=== PATIENT | female | born 1970 | race African-American/Black ===

== ENCOUNTER 2017-02-17 22:23 | Emergency (ER) | payer MEDICARE, MEDICAID ==
[~2017-02-17] VITALS: Ht 180.3 cm; Wt 49.4 kg
[~2017-02-17 22:23] MED LIST: ASPI81TA27 PO; CINA30TA2 PO; CLON0.1T PO; CLON0.3D4 PO; DIPH25TA26 PO; LORA2TAB10 PO; METO-158 PO; NIFE90TA30 PO; OMEP20CA74 OR; PRO125RS RE; [UNRECOGNIZED DRUG - CODE] PO
[2017-02-17 22:57] LABS: Basophils # (auto) 0 uL; Basophils % (auto) 0.7 % (0.0-2.0); Eosinophils # (auto) 0.1 uL; Eosinophils % (auto) 2.1 % (0.0-7.0); Hematocrit 35.3 % (36.0-46.0); Hemoglobin 11.6 g/dL (12.2-16.2); Lymphocytes # (auto) 1.6 uL; Lymphocytes % (auto) 29.6 % (10.0-50.0); Mean Corpuscular Hemoglobin 32.9 pg (28.0-32.0); Mean Corpuscular Volume 99.7 fL (80.0-100.0); Monocytes # (auto) 0.4 uL; Monocytes % (auto) 8.3 % (0.0-12.0); Neutrophils # (auto) 3.2 uL; Neutrophils % (auto) 59.3 % (37.0-80.0); Nucleated Red Blood Cells % 0.2 %; Platelet Count (auto) 134 10^3/uL (140-450); Red Cell Distribution Width 16.3 % (11.8-14.3); White Blood Cell 5.4 10^3/uL (4.4-10.8)
[2017-02-17 23:14] LABS: Albumin 3.8 g/dL (3.4-5.0); Anion Gap 10 (5-15); Aspartate Aminotransferase 8 U/L (15-37); BUN/Creatinine Ratio 4.2; Blood Urea Nitrogen 40 mg/dL (7-18); Calcium 9.5 mg/dL (8.5-10.1); Carbon Dioxide 29 mmol/L (21-32); Chloride 98 mmol/L (98-107); GFR African American 6 mL/min; GFR Non-African American 5 mL/min; Glucose 65 mg/dL (74-106); Magnesium 2.8 mg/dL (1.6-2.6); Potassium 4.7 mmol/L (3.5-5.1); Sodium 137 mmol/L (136-145)
[2017-02-17 23:19] LABS: Alkaline Phosphatase 49 U/L (45-117); Bilirubin, Total 0.4 mg/dL (0.2-1.0); Total Protein 7.5 g/dL (6.4-8.2)
[2017-02-18] MEDS ORDERED: HYDROcodone-ACET 10/325MG TAB PO ONE
[2017-02-18 00:02] LABS: Temperature: 21.8 C (20.0-25.0)
[2017-02-18 02:12] VITALS: BP 196/95
== END 2017-02-18 02:16 | disposition home or self-care (01) ==
LOC: EDBD 22:23 → ER 22:26
DX: R07.89 Other chest pain (principal); I25.10 Atherosclerotic heart disease of native coronary artery without angina pectoris; I12.0 Hypertensive chronic kidney disease with stage 5 chronic kidney disease or end stage renal disease; N18.6 End stage renal disease; I25.2 Old myocardial infarction; F17.210 Nicotine dependence, cigarettes, uncomplicated; Z79.82 Long term (current) use of aspirin; Z79.899 Other long term (current) drug therapy; Z99.2 Dependence on renal dialysis
CPT/HCPCS: 36415; 71010; 80053; 83735; 83880; 84484; 85025; 93005

== ENCOUNTER 2017-06-21 13:25 | Inpatient (IN) | payer MEDICARE, MEDICAID ==
[~2017-06-21] VITALS: Ht 177.8 cm; Wt 76.6 kg
[~2017-06-21 13:25] MED LIST changes: +CLO01T PO; +MET50T PO; -METO-158 PO; -OMEP20CA74 OR; +OMEP20CA74 PO
[2017-06-21] MEDS ORDERED: cloNIDine HCL 0.1 MG TAB PO ONE (15:00)
[2017-06-21] MEDS ORDERED: cefTRIAXone 1GM/10ml IVPUSH 10 ML IV ONE (15:45)
[2017-06-21 16:22] LABS: Basophils # (auto) 0.1 uL; Eosinophils # (auto) 0.2 uL; Hemoglobin 13.8 g/dL (12.2-16.2); Neutrophils # (auto) 5.3 uL
[2017-06-21 16:24] LABS: Basophils % (auto) 1.2 % (0.0-2.0); Eosinophils % (auto) 2.6 % (0.0-7.0); Hematocrit 41.1 % (36.0-46.0); Lymphocytes # (auto) 1.3 uL; Lymphocytes % (auto) 16.9 % (10.0-50.0); Mean Corpuscular Hemoglobin 34.3 pg (28.0-32.0); Mean Corpuscular Hgb Conc. 33.6 g/dL (32.0-36.0); Mean Corpuscular Volume 102.1 fL (80.0-100.0); Monocytes # (auto) 0.6 uL; Monocytes % (auto) 8.7 % (0.0-12.0); Neutrophils % (auto) 70.6 % (37.0-80.0); Nucleated Red Blood Cells % 0.1 %; Platelet Count (auto) 208 10^3/uL (140-450); Red Blood Cells 4.03 10^6/uL (4.0-5.20); Red Cell Distribution Width 16.4 % (11.8-14.3); White Blood Cell 7.5 10^3/uL (4.4-10.8)
[2017-06-21 16:35] LABS: INR 0.94 (0.9-1.15); Partial Thromboplastin Time 23.5 sec (22.64-33.71); Prothrombin Time 10.2 sec (9.37-12.3)
[2017-06-21] MEDS ORDERED: MORPHINE SULFATE 10 MG/ML INJ 1ML SDV IV ONE (16:45)
[2017-06-21] MEDS ORDERED: ONDANSETRON HCL 4 MG/2 ML VIAL IV ONE (16:45)
[2017-06-21 16:54] LABS: Albumin 4.8 g/dL (3.4-5.0); BUN/Creatinine Ratio 2.8; Bilirubin, Total 0.5 mg/dL (0.2-1.0); Calcium 11.5 mg/dL (8.5-10.1); Potassium 4.9 mmol/L (3.5-5.1); Total Protein 8.9 g/dL (6.4-8.2)
[2017-06-21] MEDS ORDERED: ACETAMINOPHEN 500 MG TAB PO PRN (20:30)
[2017-06-21] MEDS ORDERED: LORazepam 0.5 MG TAB PO PRN (20:30)
[2017-06-21 21:14] LABS: Basophils # (auto) 0.1 uL; Eosinophils # (auto) 0.1 uL; Monocytes # (auto) 0.5 uL; Nucleated Red Blood Cells % 0.1 %
[2017-06-21 21:15] LABS: Basophils % (auto) 1.1 % (0.0-2.0); Eosinophils % (auto) 1.3 % (0.0-7.0); Hematocrit 40.1 % (36.0-46.0); Hemoglobin 13.1 g/dL (12.2-16.2); Mean Corpuscular Hemoglobin 33.7 pg (28.0-32.0); Mean Corpuscular Hgb Conc. 32.8 g/dL (32.0-36.0); Mean Corpuscular Volume 102.9 fL (80.0-100.0); Monocytes % (auto) 6.7 % (0.0-12.0); Neutrophils # (auto) 5.3 uL; Neutrophils % (auto) 76.9 % (37.0-80.0); Platelet Count (auto) 201 10^3/uL (140-450); Red Blood Cells 3.89 10^6/uL (4.0-5.20); Red Cell Distribution Width 16.9 % (11.8-14.3); White Blood Cell 6.9 10^3/uL (4.4-10.8)
[2017-06-21] MEDS ORDERED: NIFEdipine ER 30 MG TAB PO ONE (21:30)
[2017-06-21] MEDS ORDERED: LABETALOL HCL 5 MG/ML ML 20ML VIAL IV PRN (21:30)
[2017-06-21 21:37] LABS: Albumin 4.9 g/dL (3.4-5.0); BUN/Creatinine Ratio 2.9; Bilirubin, Total 0.4 mg/dL (0.2-1.0); Calcium 11.6 mg/dL (8.5-10.1); Potassium 4.2 mmol/L (3.5-5.1); Total Protein 8.7 g/dL (6.4-8.2)
[2017-06-21] MEDS: traZODone HCL 50 MG TAB PO SCH (21:49)
[2017-06-21] MEDS: MORPHINE SULFATE 10 MG/ML INJ 1ML SDV IV PRN (22:00)
[2017-06-21] MEDS ORDERED: cloNIDine HCL 0.1 MG TAB PO SCH (22:00)
[2017-06-21] MEDS: cloNIDine HCL 0.1 MG TAB PO SCH (22:00)
[2017-06-21] MEDS: METOPROLOL TARTRATE 50 MG TAB PO SCH (22:00)
[2017-06-21] MEDS: ONDANSETRON HCL 4 MG/2 ML VIAL IV PRN (22:01)
[2017-06-22] MEDS: HYDROcodone-ACET 5/325MG TAB PO PRN ×2 (01:04→13:42)
[2017-06-22 05:00] VITALS: BP 146/80
[2017-06-22] MEDS: cloNIDine HCL 0.1 MG TAB PO SCH ×3 (05:21→21:51)
[2017-06-22] MEDS: SEVELAMER 800 MG TAB PO SCH ×3 (08:09→17:39)
[2017-06-22 09:00] VITALS: BP 137/76
[2017-06-22] MEDS ORDERED: PIPERACILLIN-TAZOB 3.375GM 50 ML IV ONE (09:30)
[2017-06-22] MEDS ORDERED: metroNIDAZOLE 500MG/100ML 100 ML IV ONE (09:30)
[2017-06-22] MEDS: PANTOPRAZOLE 40 MG TAB PO SCH (09:56)
[2017-06-22] MEDS: NIFEdipine ER 30 MG TAB PO SCH (09:57)
[2017-06-22] MEDS: METOPROLOL TARTRATE 50 MG TAB PO SCH ×2 (09:57→21:51)
[2017-06-22] MEDS: ASPirin-EC 81 mg tab PO SCH (09:58)
[2017-06-22] MEDS: PIPERACILLIN-TAZOB 3.375GM 50 ML IV SCH ×3 (11:34→22:50)
[2017-06-22 13:00] VITALS: BP 140/77
[2017-06-22] MEDS: metroNIDAZOLE 500MG/100ML 100 ML IV SCH ×2 (14:39→20:54)
[2017-06-22 17:20] VITALS: BP 122/65
[2017-06-22] MEDS: MORPHINE SULFATE 10 MG/ML INJ 1ML SDV IV PRN (20:53)
[2017-06-22] MEDS: ONDANSETRON HCL 4 MG/2 ML VIAL IV PRN (20:53)
[2017-06-22] MEDS: traZODone HCL 50 MG TAB PO SCH (21:51)
[2017-06-22 22:00] VITALS: BP 123/75
[2017-06-23] MEDS: MORPHINE SULFATE 10 MG/ML INJ 1ML SDV IV PRN ×3 (02:43→22:46)
[2017-06-23] MEDS: metroNIDAZOLE 500MG/100ML 100 ML IV SCH ×4 (03:16→20:56)
[2017-06-23] MEDS: PIPERACILLIN-TAZOB 3.375GM 50 ML IV SCH ×4 (04:29→22:37)
[2017-06-23 05:00] VITALS: BP 133/72
[2017-06-23] MEDS: cloNIDine HCL 0.1 MG TAB PO SCH ×3 (06:08→21:26)
[2017-06-23 08:00] VITALS: BP 135/70
[2017-06-23] MEDS: SEVELAMER 800 MG TAB PO SCH ×3 (08:26→18:52)
[2017-06-23 09:00] VITALS: BP 135/70
[2017-06-23] MEDS: ASPirin-EC 81 mg tab PO SCH (10:46)
[2017-06-23] MEDS: METOPROLOL TARTRATE 50 MG TAB PO SCH ×2 (10:46→21:26)
[2017-06-23] MEDS: PANTOPRAZOLE 40 MG TAB PO SCH (10:46)
[2017-06-23] MEDS: NIFEdipine ER 30 MG TAB PO SCH (10:47)
[2017-06-23] MEDS: HYDROcodone-ACET 5/325MG TAB PO PRN (10:58)
[2017-06-23 13:00] VITALS: BP 135/74
[2017-06-23] MEDS ORDERED: diphenhdrAMINE HCL 50 MG/1 ML VL IV ONE (14:00)
[2017-06-23 17:00] VITALS: BP 108/56
[2017-06-23] MEDS: traZODone HCL 50 MG TAB PO SCH (21:26)
[2017-06-23] MEDS: diphenhdrAMINE HCL 50 MG/1 ML VL IV PRN (21:27)
[2017-06-23 22:00] VITALS: BP 120/70
[2017-06-24] MEDS: metroNIDAZOLE 500MG/100ML 100 ML IV SCH ×2 (02:48→10:03)
[2017-06-24] MEDS: PIPERACILLIN-TAZOB 3.375GM 50 ML IV SCH ×2 (04:48→11:56)
[2017-06-24 05:00] VITALS: BP 143/70
[2017-06-24] MEDS: cloNIDine HCL 0.1 MG TAB PO SCH ×3 (05:18→21:52)
[2017-06-24] MEDS: HYDROcodone-ACET 5/325MG TAB PO PRN (05:19)
[2017-06-24 08:00] VITALS: BP 124/72
[2017-06-24 08:42] VITALS: BP 124/72
[2017-06-24] MEDS: METOPROLOL TARTRATE 50 MG TAB PO SCH ×2 (10:00→21:52)
[2017-06-24] MEDS: SEVELAMER 800 MG TAB PO SCH ×3 (10:01→17:19)
[2017-06-24 10:02] LABS: BUN/Creatinine Ratio 2.2; Calcium 9.9 mg/dL (8.5-10.1); Potassium 5.4 mmol/L (3.5-5.1)
[2017-06-24] MEDS: PANTOPRAZOLE 40 MG TAB PO SCH (10:02)
[2017-06-24] MEDS: ASPirin-EC 81 mg tab PO SCH (10:02)
[2017-06-24] MEDS: NIFEdipine ER 30 MG TAB PO SCH (10:02)
[2017-06-24] MEDS: diphenhdrAMINE HCL 50 MG/1 ML VL IV PRN ×2 (10:55→17:18)
[2017-06-24 11:05] LABS: Basophils # (auto) 0 uL; Lymphocytes # (auto) 0.4 uL; Monocytes # (auto) 0.4 uL; Monocytes % (auto) 9.3 % (0.0-12.0); Neutrophils # (auto) 2.9 uL; Red Blood Cells 3.33 10^6/uL (4.0-5.20); White Blood Cell 3.8 10^3/uL (4.4-10.8)
[2017-06-24 11:13] LABS: Basophils % (auto) 0.3 % (0.0-2.0); Eosinophils # (auto) 0.2 uL; Eosinophils % (auto) 4.2 % (0.0-7.0); Hematocrit 34.5 % (36.0-46.0); Hemoglobin 11.3 g/dL (12.2-16.2); Lymphocytes % (auto) 10.5 % (10.0-50.0); Mean Corpuscular Hemoglobin 33.9 pg (28.0-32.0); Mean Corpuscular Hgb Conc. 32.7 g/dL (32.0-36.0); Mean Corpuscular Volume 103.7 fL (80.0-100.0); Neutrophils % (auto) 75.7 % (37.0-80.0); Red Cell Distribution Width 16.5 % (11.8-14.3)
[2017-06-24 11:27] LABS: Platelet Count (auto) 132 10^3/uL (140-450)
[2017-06-24 12:48] VITALS: BP 145/82
[2017-06-24] MEDS ORDERED: LEVOFLOXACIN 500MG 100 ML IV ONE (13:30)
[2017-06-24 16:44] VITALS: BP 146/92
[2017-06-24] MEDS: cefTRIAXone 1GM/10ml IVPUSH 10 ML IV SCH (17:19)
[2017-06-24] MEDS ORDERED: LACTULOSE 20Gm/30ML SOLN PO PRN (18:00)
[2017-06-24] MEDS ORDERED: LACTULOSE 20Gm/30ML SOLN PO SCH (18:00)
[2017-06-24] MEDS: MORPHINE SULFATE 10 MG/ML INJ 1ML SDV IV PRN (19:35)
[2017-06-24] MEDS ORDERED: SODIUM CHL 0.9% 1000 ML BAG XX ONE (19:45)
[2017-06-24] MEDS ORDERED: EPOETIN ALFA 10,000 UNIT/1 ML VIAL IV ONE (19:45)
[2017-06-24 21:38] VITALS: BP 130/90
[2017-06-24] MEDS: traZODone HCL 50 MG TAB PO SCH (21:52)
[2017-06-25] VITALS (8 sets, daily range): BP systolic 138–161; BP diastolic 68–99
[2017-06-25] MEDS: diphenhdrAMINE HCL 50 MG/1 ML VL IV PRN ×3 (01:46→20:30)
[2017-06-25] MEDS: cloNIDine HCL 0.1 MG TAB PO SCH ×3 (06:24→22:06)
[2017-06-25] MEDS: SEVELAMER 800 MG TAB PO SCH ×3 (08:25→17:33)
[2017-06-25] MEDS: HYDROcodone-ACET 5/325MG TAB PO PRN (11:49)
[2017-06-25] MEDS: NIFEdipine ER 30 MG TAB PO SCH (13:20)
[2017-06-25] MEDS: PANTOPRAZOLE 40 MG TAB PO SCH (13:20)
[2017-06-25] MEDS: ASPirin-EC 81 mg tab PO SCH (13:20)
[2017-06-25] MEDS: cefTRIAXone 1GM/10ml IVPUSH 10 ML IV SCH (13:21)
[2017-06-25] MEDS: METOPROLOL TARTRATE 50 MG TAB PO SCH ×2 (13:22→22:05)
[2017-06-25] MEDS ORDERED: LEVOFLOXACIN 500MG 100 ML IV SCH (17:00)
[2017-06-25] MEDS: MORPHINE SULFATE 10 MG/ML INJ 1ML SDV IV PRN (20:30)
[2017-06-25] MEDS: traZODone HCL 50 MG TAB PO SCH (22:05)
[2017-06-26] MEDS: diphenhdrAMINE HCL 50 MG/1 ML VL IV PRN ×2 (04:14→15:05)
[2017-06-26] MEDS: MORPHINE SULFATE 10 MG/ML INJ 1ML SDV IV PRN (04:14)
[2017-06-26 04:55] VITALS: BP 134/93
[2017-06-26] MEDS: cloNIDine HCL 0.1 MG TAB PO SCH (05:51)
[2017-06-26 08:00] VITALS: BP 128/69
[2017-06-26] MEDS: SEVELAMER 800 MG TAB PO SCH (08:13)
[2017-06-26] MEDS: NIFEdipine ER 30 MG TAB PO SCH (10:08)
[2017-06-26] MEDS: PANTOPRAZOLE 40 MG TAB PO SCH (10:08)
[2017-06-26] MEDS: ASPirin-EC 81 mg tab PO SCH (10:09)
[2017-06-26] MEDS: METOPROLOL TARTRATE 50 MG TAB PO SCH (10:09)
[2017-06-26 10:32] VITALS: BP 128/69
[2017-06-26] MEDS: HYDROcodone-ACET 5/325MG TAB PO PRN (15:05)
== END 2017-06-26 16:55 | disposition home or self-care (01) | DRG 291 ==
LOC: ER 13:25 → TELE 13:26 → TELE-CENTR 06-22 00:48
PROVIDERS: ADMIT Nurse Practitioner Family; ATTEND Internal Medicine
PROC: 5A1D70Z Performance of Urinary Filtration, Intermittent, Less than 6 Hours Per Day (ICD-10-PCS; principal; 2017-06-23)
PROC: 5A1D70Z Performance of Urinary Filtration, Intermittent, Less than 6 Hours Per Day (ICD-10-PCS; 2017-06-25)
DX: I13.2 Hypertensive heart and chronic kidney disease with heart failure and with stage 5 chronic kidney disease, or end stage renal disease (principal); N18.6 End stage renal disease; R78.81 Bacteremia; E87.5 Hyperkalemia; R10.9 Unspecified abdominal pain; N20.0 Calculus of kidney; N83.201 Unspecified ovarian cyst, right side; E78.00 Pure hypercholesterolemia, unspecified; I25.10 Atherosclerotic heart disease of native coronary artery without angina pectoris; E21.3 Hyperparathyroidism, unspecified; K59.00 Constipation, unspecified; B95.4 Other streptococcus as the cause of diseases classified elsewhere; Z99.2 Dependence on renal dialysis; D64.9 Anemia, unspecified; F17.210 Nicotine dependence, cigarettes, uncomplicated; I50.9 Heart failure, unspecified; K21.9 Gastro-esophageal reflux disease without esophagitis; Z79.82 Long term (current) use of aspirin; Z79.899 Other long term (current) drug therapy; Z82.49 Family history of ischemic heart disease and other diseases of the circulatory system; Z87.01 Personal history of pneumonia (recurrent); Z84.1 Family history of disorders of kidney and ureter
CPT/HCPCS: 36415; 71045; 71250; 74176; 76830; 80048; 80053; 82150; 83605; 83690; 83735; 84702; 85025; 85610; 85730; 87040; 87077; 87186; 87400; 90935; 93005; 94761; 96374; 96375; J0885; J1642; J1956; J2405; J2543; J3490

== ENCOUNTER 2017-07-28 06:50 | Emergency (ER) | payer MEDICARE, MEDICAID ==
[~2017-07-28] VITALS: Ht 177.8 cm; Wt 74.8 kg
[2017-07-28 08:14] LABS: Basophils # (auto) 0 uL; Basophils % (auto) 0.6 % (0.0-2.0); Eosinophils # (auto) 0.2 uL; Hematocrit 37.8 % (36.0-46.0); Hemoglobin 12.5 g/dL (12.2-16.2); Lymphocytes # (auto) 0.9 uL; Lymphocytes % (auto) 14.5 % (10.0-50.0); Mean Corpuscular Hemoglobin 33.5 pg (28.0-32.0); Mean Corpuscular Hgb Conc. 33.2 g/dL (32.0-36.0); Mean Corpuscular Volume 100.9 fL (80.0-100.0); Monocytes # (auto) 0.5 uL; Monocytes % (auto) 7.2 % (0.0-12.0); Neutrophils # (auto) 4.7 uL; Neutrophils % (auto) 74.7 % (37.0-80.0); Nucleated Red Blood Cells % 0.3 %; Platelet Count (auto) 152 10^3/uL (140-450); Red Blood Cells 3.74 10^6/uL (4.0-5.20); Red Cell Distribution Width 15.7 % (11.8-14.3); White Blood Cell 6.3 10^3/uL (4.4-10.8)
[2017-07-28 08:35] LABS: Albumin 3.6 g/dL (3.4-5.0); Anion Gap 5 (5-15); Blood Urea Nitrogen 20 mg/dL (7-18); Calcium 9.7 mg/dL (8.5-10.1); Carbon Dioxide 34 mmol/L (21-32); Chloride 95 mmol/L (98-107); Glucose 111 mg/dL (74-106); Magnesium 2.3 mg/dL (1.6-2.6); Potassium 3.7 mmol/L (3.5-5.1); Sodium 134 mmol/L (136-145)
[2017-07-28 08:37] LABS: Alanine Aminotransferase 8 U/L (13-56); Aspartate Aminotransferase 10 U/L (15-37); BUN/Creatinine Ratio 2.9; GFR African American 8 mL/min; GFR Non-African American 7 mL/min
[2017-07-28 08:40] LABS: Alkaline Phosphatase 50 U/L (45-117); Bilirubin, Total 0.3 mg/dL (0.2-1.0); Total Protein 7.8 g/dL (6.4-8.2)
[2017-07-28 11:18] VITALS: BP 101/47
== END 2017-07-28 11:26 | disposition home or self-care (01) ==
LOC: EDBD 06:50 → ER 06:50
DX: I12.0 Hypertensive chronic kidney disease with stage 5 chronic kidney disease or end stage renal disease (principal); N18.6 End stage renal disease; I25.10 Atherosclerotic heart disease of native coronary artery without angina pectoris; K21.9 Gastro-esophageal reflux disease without esophagitis; E78.5 Hyperlipidemia, unspecified; Z99.2 Dependence on renal dialysis; Z79.82 Long term (current) use of aspirin; Z79.899 Other long term (current) drug therapy
CPT/HCPCS: 36415; 80053; 83735; 84443; 84484; 85025; 93005